=== PATIENT | male | born 1945 | race Caucasian/White ===

== ENCOUNTER → 2018-11-23 | Outpatient (CLI) | payer MEDICARE ==
--- NOTE | 2018-11-23 15:18 | REP ---
Clinical: Radiculopathy. Technique: AP, lateral, open mouth views of the cervical spine. Findings: Age-related osteopenia and advanced multilevel degenerative disc osteophyte complexes are appreciated including flowing osteophytes and partial fusion at C4-5 and C6-7 as well as further osteophytosis, endplate sclerosis and disc space narrowing. No acute fracture / compression injury or subluxation. Impression: Osteopenia and advanced multilevel degenerative changes. Electronically Signed by Vasu Ortez MD 11/23/2018 03:09 P
== END ==
LOC: M WUC 14:40
PROVIDERS: ATTEND Physician Assistant
DX: M54.12 Radiculopathy, cervical region (principal)

== ENCOUNTER → 2021-09-05 | Outpatient (REF) | payer MEDICARE ==
[2021-09-05 13:25] LABS: APPEARANCE, URINE CLEAR (CLEAR); BACTERIA, URINE AUTO NEGATIVE (NEGATIVE); BILIRUBIN, URINE AUTO NEGATIVE (NEGATIVE); BLOOD, URINE BLOOD 1+ (NEGATIVE); COLOR, URINE YELLOW (YELLOW); GLUCOSE, URINE (UA) AUTO NEGATIVE (NEGATIVE); KETONE, URINE AUTO NEGATIVE (NEGATIVE); LEUKOCYTE ESTERASE, URINE AUTO NEGATIVE (NEGATIVE); MUCUS, URINE SMALL (NEGATIVE); NITRITE, URINE AUTO NEGATIVE (NEGATIVE); PROTEIN, URINE AUTO NEGATIVE (NEGATIVE); RBC, URINE AUTO 2 /HPF (0-3); SPECIFIC GRAVITY URINE AUTO 1.016 (1.002-1.035); SQUAMOUS EPITHELIAL CELL UR AU 0 /HPF (0-6); UROBILINOGEN, URINE AUTO 0.2 mg/dL (0.0-2.0); WBC, URINE AUTO 0 /HPF (0-3)
== END ==
LOC: M SMT 12:38
PROVIDERS: ATTEND Physician Assistant
DX: R35.1 Nocturia (principal)

== ENCOUNTER → 2022-07-17 | Outpatient (REF) | payer MEDICARE ==
[2022-07-17 14:46] LABS: CHOLESTEROL RISK RATIO 2.29 (<5); HDL CHOLESTEROL 65.8 MG/DL (>40); LDL CHOLESTEROL 71.6 MG/DL (<100)
== END ==
LOC: M LAB REF 12:55
PROVIDERS: ATTEND Nurse Practitioner Family
DX: E78.5 Hyperlipidemia, unspecified (principal)

== ENCOUNTER → 2022-12-19 | Outpatient (REF) | payer OTHER ==
[2022-12-19 15:20] LABS: BASO % 0.3 % (0.0-1.0); EOS # 0.1 10^3/uL (0.0-0.5); EOS % 1.9 % (0.0-3.0); HEMATOCRIT 40.7 % (42.0-52.0); HEMOGLOBIN 13.1 g/dl (13.5-17.5); LYMPH # 1.6 10^3/uL (1.5-5.0); LYMPH % 26.5 % (24.0-44.0); MEAN CORPUSCULAR HEMOGLOBIN 32.5 pg (27.0-33.0); MEAN CORPUSCULAR HGB CONC 32.2 g/dl (32.0-36.5); MONO # 0.6 10^3/uL (0.0-0.8); MONO % 10.6 % (2.0-8.0); NEUTROPHILS # 3.6 10^3/uL (1.5-8.5); NEUTROPHILS % 60.4 % (36.0-66.0); PLATELET COUNT, AUTOMATED 199 10^3/uL (150-450); RED BLOOD COUNT 4.03 10^6/uL (4.30-6.10); WHITE BLOOD COUNT 5.9 10^3/uL (4.0-10.0)
[2022-12-19 16:25] LABS: ALBUMIN 3.9 G/DL (3.2-5.2); ALKALINE PHOSPHATASE 102 U/L (46-116); ALT/SGPT 19 U/L (7.0-40); AST/SGOT 18 U/L (<34); BILIRUBIN,TOTAL 0.6 MG/DL (0.3-1.2); BLOOD UREA NITROGEN 20 MG/DL (9-23); CALCIUM LEVEL 9.3 MG/DL (8.3-10.6); CARBON DIOXIDE LEVEL 29 MMOL/L (20-31); CHLORIDE LEVEL 103 MMOL/L (98-107); CHOLESTEROL LEVEL 159 MG/DL (<200); CHOLESTEROL RISK RATIO 2.18 (<5); CREATININE FOR GFR 1.07 MG/DL (0.70-1.30); GLOMERULAR FILTRATION RATE > 60.0 (>42); GLUCOSE, FASTING 94 MG/DL (74-106); HDL CHOLESTEROL 72.8 MG/DL (>40); LDL CHOLESTEROL 60.6 MG/DL (<100); NON-HDL-C 86.2 MG/DL; POTASSIUM SERUM 4.2 MMOL/L (3.5-5.1); SODIUM LEVEL 140 MMOL/L (136-145); TOTAL PROTEIN 7.1 G/DL (5.7-8.2); TRIGLYCERIDES LEVEL 128 MG/DL (<150)
== END ==
LOC: M LAB REF 12:04
PROVIDERS: ATTEND Nurse Practitioner Family
DX: Z13.228 Encounter for screening for other metabolic disorders (principal)

== ENCOUNTER → 2022-12-19 | Outpatient (CLI) | payer OTHER ==
[2022-12-19 12:18] LABS: C REACTIVE PROTEIN QUANTITATIV < 0.40 MG/DL (<1.0)
[2022-12-19 12:22] LABS: FOLATE 13.6 NG/ML (>5.4); VITAMIN B12 LEVEL 741 PG/ML (211-911)
== END ==
LOC: M LAB 09:52
PROVIDERS: ATTEND Psychiatry & Neurology Neurology
DX: R51.9 Headache, unspecified (principal); Z13.228 Encounter for screening for other metabolic disorders; G62.9 Polyneuropathy, unspecified; E53.8 Deficiency of other specified B group vitamins; E51.9 Thiamine deficiency, unspecified; E53.1 Pyridoxine deficiency

== ENCOUNTER 2023-01-07 11:12 | Observation (INO) | payer OTHER ==
[~2023-01-07] VITALS: Ht 175.3 cm; Wt 75.6 kg
[2023-01-07 15:12] LABS: BASO % 0.4 % (0.0-1.0); EOS # 0.1 10^3/uL (0.0-0.5); EOS % 1.5 % (0.0-3.0); HEMATOCRIT 35.3 % (42.0-52.0); HEMOGLOBIN 11.6 g/dl (13.5-17.5); LYMPH # 1.7 10^3/uL (1.5-5.0); LYMPH % 22.9 % (24.0-44.0); MEAN CORPUSCULAR HEMOGLOBIN 32.9 pg (27.0-33.0); MEAN CORPUSCULAR HGB CONC 32.9 g/dl (32.0-36.5); MONO # 0.8 10^3/uL (0.0-0.8); MONO % 10.6 % (2.0-8.0); NEUTROPHILS # 4.8 10^3/uL (1.5-8.5); NEUTROPHILS % 64.3 % (36.0-66.0); PLATELET COUNT, AUTOMATED 216 10^3/uL (150-450); RED BLOOD COUNT 3.53 10^6/uL (4.30-6.10); WHITE BLOOD COUNT 7.4 10^3/uL (4.0-10.0)
[2023-01-07 15:25] LABS: INR 1.05; PROTHROMBIN TIME 13.4 SECONDS (12.5-14.5)
[2023-01-07 15:26] LABS: PARTIAL THROMBOPLASTIN TIME 30.2 SECONDS (24.8-34.2)
[2023-01-07 15:52] LABS: BLOOD UREA NITROGEN 20 MG/DL (9-23); CALCIUM LEVEL 8.9 MG/DL (8.3-10.6); CARBON DIOXIDE LEVEL 27 MMOL/L (20-31); CHLORIDE LEVEL 106 MMOL/L (98-107); CK-MB VALUE MASS 2.7 NG/ML (<3.6); CPK CREATINE PHOSPHOKINASE 71 U/L (46-171); CREATININE FOR GFR 1.15 MG/DL (0.70-1.30); GLOMERULAR FILTRATION RATE > 60.0 (>42); GLUCOSE, FASTING 80 MG/DL (74-106); POTASSIUM SERUM 4.1 MMOL/L (3.5-5.1); SODIUM LEVEL 140 MMOL/L (136-145)
[2023-01-07] MEDS ORDERED: MED REC IN PROGRESS XX SCH (17:35)
[2023-01-07] MEDS ORDERED: B-12100010 PO (19:27)
[2023-01-07] MEDS ORDERED: ROPI5TAB19 PO (19:27)
[2023-01-07] MEDS ORDERED: DIVA250T67 PO (19:27)
[2023-01-07] MEDS ORDERED: OMEP-173 PO (19:27)
[2023-01-07] MEDS ORDERED: ZOLO100T PO (19:27)
[2023-01-07] MEDS ORDERED: ROSU40TA4 PO (19:28)
[2023-01-07] MEDS ORDERED: D-101000 PO (19:39)
[2023-01-07] MEDS ORDERED: HOME MED LIST COMPLETE! XX SCH (19:45)
[2023-01-07 20:15] VITALS: BP 149/62; TEMP 97.7; O2SAT 99
[2023-01-07 22:00] VITALS: BP_SYST 105; BP_SYST 106; BP_SYST 72; BP_DIAS 50; BP_DIAS 60
[2023-01-08] VITALS (8 sets, daily range): BP systolic 53–131; BP diastolic 35–78; TEMP 97.7; O2SAT 98
[2023-01-08] MEDS: MIDODRINE 5 MG TAB PO SCH ×3 (06:49→16:40)
[2023-01-08 07:55] LABS: HEMATOCRIT 34.1 % (42.0-52.0); HEMOGLOBIN 11.2 g/dl (13.5-17.5); MEAN CORPUSCULAR HEMOGLOBIN 32.3 pg (27.0-33.0); MEAN CORPUSCULAR HGB CONC 32.8 g/dl (32.0-36.5); MEAN CORPUSCULAR VOLUME 98.3 fl (80.0-96.0); PLATELET COUNT, AUTOMATED 214 10^3/uL (150-450); RED BLOOD COUNT 3.47 10^6/uL (4.30-6.10)
[2023-01-08 08:08] LABS: BLOOD UREA NITROGEN 16 MG/DL (9-23); CALCIUM LEVEL 8.7 MG/DL (8.3-10.6); CARBON DIOXIDE LEVEL 27 MMOL/L (20-31); CHLORIDE LEVEL 107 MMOL/L (98-107); CREATININE FOR GFR 1.07 MG/DL (0.70-1.30); GLOMERULAR FILTRATION RATE > 60.0 (>42); GLUCOSE, FASTING 93 MG/DL (74-106); POTASSIUM SERUM 3.9 MMOL/L (3.5-5.1); SODIUM LEVEL 142 MMOL/L (136-145)
[2023-01-08] MEDS: SERTRALINE 100 MG TAB PO SCH (11:58)
[2023-01-08] MEDS: DIVALPROEX 250MG TAB PO SCH ×2 (11:58→20:01)
[2023-01-08] MEDS: CYANOCOBALAMIN 500 MCG TAB PO SCH (11:58)
[2023-01-08] MEDS: OMEPRAZOLE 20MG CAP PO SCH (11:58)
[2023-01-08] MEDS: ROSUVASTATIN 10 MG TAB (CRESTOR) PO SCH (12:07)
[2023-01-09 05:31] VITALS: BP 99/50; TEMP 97.7; O2SAT 99
[2023-01-09 05:40] LABS: HEMATOCRIT 34.1 % (42.0-52.0); HEMOGLOBIN 11.1 g/dl (13.5-17.5); MEAN CORPUSCULAR HEMOGLOBIN 32.5 pg (27.0-33.0); MEAN CORPUSCULAR HGB CONC 32.6 g/dl (32.0-36.5); MEAN CORPUSCULAR VOLUME 99.7 fl (80.0-96.0); PLATELET COUNT, AUTOMATED 213 10^3/uL (150-450); RED BLOOD COUNT 3.42 10^6/uL (4.30-6.10); WHITE BLOOD COUNT 5.4 10^3/uL (4.0-10.0)
[2023-01-09 06:00] VITALS: BP_SYST 101; BP_SYST 65; BP_SYST 99; BP_DIAS 46; BP_DIAS 63
[2023-01-09 06:07] LABS: BLOOD UREA NITROGEN 17 MG/DL (9-23); CALCIUM LEVEL 8.5 MG/DL (8.3-10.6); CARBON DIOXIDE LEVEL 27 MMOL/L (20-31); CHLORIDE LEVEL 107 MMOL/L (98-107); CREATININE FOR GFR 1.15 MG/DL (0.70-1.30); GLOMERULAR FILTRATION RATE > 60.0 (>42); GLUCOSE, FASTING 89 MG/DL (74-106); POTASSIUM SERUM 3.9 MMOL/L (3.5-5.1); SODIUM LEVEL 143 MMOL/L (136-145)
[2023-01-09] MEDS: ROSUVASTATIN 10 MG TAB (CRESTOR) PO SCH (09:16)
[2023-01-09] MEDS: SERTRALINE 100 MG TAB PO SCH (09:16)
[2023-01-09] MEDS: DIVALPROEX 250MG TAB PO SCH ×2 (09:17→20:01)
[2023-01-09] MEDS: OMEPRAZOLE 20MG CAP PO SCH (09:17)
[2023-01-09] MEDS: CYANOCOBALAMIN 500 MCG TAB PO SCH (09:17)
[2023-01-09] MEDS: MIDODRINE 5 MG TAB PO SCH ×2 (12:04→16:43)
[2023-01-09 14:00] VITALS: BP_SYST 108; BP_SYST 125; BP_SYST 83; BP_SYST 92; BP_DIAS 54; BP_DIAS 59; BP_DIAS 61; BP_DIAS 64; TEMP 97.2; O2SAT 99
[2023-01-09 16:30] VITALS: BP 107/63
[2023-01-09 22:00] VITALS: BP_SYST 109; BP_SYST 132; BP_SYST 87; BP_DIAS 54; BP_DIAS 64; BP_DIAS 75; TEMP 97.3; O2SAT 98
[2023-01-10 06:00] VITALS: BP_SYST 102; BP_SYST 64; BP_SYST 99; BP_DIAS 42; BP_DIAS 50; BP_DIAS 53; TEMP 97.6; O2SAT 97
[2023-01-10] MEDS: OMEPRAZOLE 20MG CAP PO SCH (08:07)
[2023-01-10] MEDS: ROSUVASTATIN 10 MG TAB (CRESTOR) PO SCH (08:07)
[2023-01-10] MEDS: SERTRALINE 100 MG TAB PO SCH (08:07)
[2023-01-10] MEDS: MIDODRINE 5 MG TAB PO SCH ×2 (08:07→12:22)
[2023-01-10] MEDS: CYANOCOBALAMIN 500 MCG TAB PO SCH (08:07)
[2023-01-10] MEDS: DIVALPROEX 250MG TAB PO SCH (08:07)
[2023-01-10] MEDS ORDERED: MIDO5TA PO (09:38)
== END 2023-01-10 12:28 | disposition home or self-care (01) ==
LOC: M ED 11:12 → M MSPAV 11:13 → M ED INP 11:13 → M MSPAV 20:46
PROVIDERS: ADMIT Internal Medicine Nephrology; ATTEND Internal Medicine
DX: I95.1 Orthostatic hypotension (principal); G43.909 Migraine, unspecified, not intractable, without status migrainosus; G25.81 Restless legs syndrome; N40.0 Benign prostatic hyperplasia without lower urinary tract symptoms; I67.82 Cerebral ischemia; I63.89 Other cerebral infarction; G93.89 Other specified disorders of brain; E78.5 Hyperlipidemia, unspecified; F32.A Depression, unspecified; N52.9 Male erectile dysfunction, unspecified; M81.0 Age-related osteoporosis without current pathological fracture; M50.80 Other cervical disc disorders, unspecified cervical region; M54.9 Dorsalgia, unspecified; Z87.09 Personal history of other diseases of the respiratory system; Z87.81 Personal history of (healed) traumatic fracture; Z79.899 Other long term (current) drug therapy
CPT/HCPCS: 36415; 70450; 71045; 80047; 80048; 82550; 82553; 84484; 85025; 85027; 85610; 85730; 93005; 93306; 97161; 97530; 99285; G0378

== ENCOUNTER → 2023-06-24 | Outpatient (CLI) | payer OTHER ==
[~2023-06-24] MED LIST: B-12100010 PO; D-101000 PO; DIVA250T67 PO; MIDO5TA PO; OMEP-173 PO; ROPI5TAB19 PO; ROSU40TA4 PO; ZOLO100T PO
[2023-06-24 12:16] LABS: BASO % 0.5 % (0.0-1.0); EOS % 1.1 % (0.0-3.0); HEMATOCRIT 39.7 % (42.0-52.0); HEMOGLOBIN 13.2 g/dl (13.5-17.5); LYMPH % 23.3 % (24.0-44.0); MEAN CORPUSCULAR HEMOGLOBIN 32.9 pg (27.0-33.0); MEAN CORPUSCULAR HGB CONC 33.2 g/dl (32.0-36.5); MONO % 13.3 % (2.0-8.0); NEUTROPHILS % 61.5 % (36.0-66.0); PLATELET COUNT, AUTOMATED 218 10^3/uL (150-450); RED BLOOD COUNT 4.01 10^6/uL (4.30-6.10); WHITE BLOOD COUNT 6.3 10^3/uL (4.0-10.0)
[2023-06-24 12:17] LABS: EOS # 0.1 10^3/uL (0.0-0.5); LYMPH # 1.5 10^3/uL (1.5-5.0); MONO # 0.8 10^3/uL (0.0-0.8); NEUTROPHILS # 3.9 10^3/uL (1.5-8.5)
[2023-06-24 12:53] LABS: VALPROIC ACID (DEPAKOTE) 46.5 UG/ML (50.0-100.0)
[2023-06-24 12:55] LABS: ALBUMIN 3.8 G/DL (3.2-5.2); ALKALINE PHOSPHATASE 101 U/L (46-116); ALT/SGPT 21 U/L (7.0-40); AST/SGOT 23 U/L (<34); BILIRUBIN,TOTAL 0.4 MG/DL (0.3-1.2); BLOOD UREA NITROGEN 19 MG/DL (9-23); CALCIUM LEVEL 9.4 MG/DL (8.3-10.6); CARBON DIOXIDE LEVEL 32 MMOL/L (20-31); CHLORIDE LEVEL 103 MMOL/L (98-107); CREATININE FOR GFR 1.21 MG/DL (0.70-1.30); GLOMERULAR FILTRATION RATE > 60.0 (>42); GLUCOSE, FASTING 103 MG/DL (74-106); POTASSIUM SERUM 4.1 MMOL/L (3.5-5.1); SODIUM LEVEL 138 MMOL/L (136-145); TOTAL PROTEIN 7.4 G/DL (5.7-8.2)
== END ==
LOC: M LAB 11:41
PROVIDERS: ATTEND Psychiatry & Neurology Neurology
DX: R51.9 Headache, unspecified (principal); R42 Dizziness and giddiness

== ENCOUNTER → 2024-04-21 | Outpatient (CLI) | payer OTHER ==
[~2024-04-21] MED LIST changes: -ROSU40TA4 PO; +ROSU40TA81 PO
== END ==
LOC: M LAB 14:28
PROVIDERS: ATTEND Ophthalmology
DX: M31.6 Other giant cell arteritis (principal)

== ENCOUNTER → 2025-01-20 | Outpatient (CLI) | payer OTHER | LOC: M SOG 06:51 | PROVIDERS: ATTEND Orthopaedic Surgery | DX: M25.572 Pain in left ankle and joints of left foot (principal) ==

== ENCOUNTER → 2025-02-03 | Outpatient (CLI) | payer OTHER | LOC: M SOG 07:27 | PROVIDERS: ATTEND Orthopaedic Surgery | DX: S82.65XA Nondisplaced fracture of lateral malleolus of left fibula, initial encounter for closed fracture (principal); W18.30XD Fall on same level, unspecified, subsequent encounter; Y92.009 Unspecified place in unspecified non-institutional (private) residence as the place of occurrence of the external cause ==